=== PATIENT | female | born 1995 | race Caucasian/White ===

== ENCOUNTER → 2023-10-13 09:22 | Outpatient (REF) | payer BC, SELFPAY | LOC: PNTC 09:22 | PROVIDERS: ATTENDING PHYSICIAN Obstetrics & Gynecology | DX: Z36.0 Encounter for antenatal screening for chromosomal anomalies (principal); Z36.82 Encounter for antenatal screening for nuchal translucency; Q79.60 Ehlers-Danlos syndrome, unspecified | CPT/HCPCS: 76801; 76813 ==

== ENCOUNTER → 2024-01-08 11:39 | Outpatient (REF) | payer BC, SELFPAY | LOC: HWRAD 11:39 | PROVIDERS: ATTENDING PHYSICIAN Nurse Practitioner | DX: R22.1 Localized swelling, mass and lump, neck (principal) | CPT/HCPCS: 76536 ==

== ENCOUNTER → 2024-01-26 09:29 | Outpatient (REF) | payer BC, SELFPAY | LOC: RCS 09:29 | PROVIDERS: ATTENDING PHYSICIAN Nurse Practitioner; REFERRING PHYSICIAN Internal Medicine Interventional Cardiology | DX: R00.2 Palpitations (principal) | CPT/HCPCS: 93225; 93226 ==

== ENCOUNTER 2024-02-09 09:53 | Emergency (ER) | payer BC, SELFPAY ==
[2024-02-09 10:01] VITALS: BP 126/69
[2024-02-09 10:10] VITALS: BP 111/71
--- NOTE | 2024-02-09 10:17 | ED.GENMED ---
History of Present Illness
General
Chief Complaint: Heart Rate Problem
Source: patient
Time Seen by Provider: 02/09/24 10:05
History of Present Illness
History of Present Illness:
28-year-old female presents to the emergency room complaining of rapid heartbeat. Patient has a history of palpitations. She has been having episodes which are typically short-lived since she was 13 years old. She has worn Holter monitors which
have failed to capture the dysrhythmia. Today her symptoms were lasting for about 40 minutes prompting her visit to the emergency room. She states that they have never been able to capture the rhythm at all. She tried vagal maneuvers at home.
She is apprehensive to take medication as she is 30 weeks .
Phy Exam
Physical Exam
Physical Exam:
General: Awake, Alert, Oriented X3. No acute distress.
Vitals: Tachycardic
Head: Atraumatic
Eyes: Pupils equal, EOMI
Throat: Airway intact, no exudates
Neck: Trachea midline
Lungs: Clear and equal b/l
Heart: Tachycardic regular rate, no murmurs
Abd: Soft, Nontender, No pulsatile mass
Neuro: Nonfocal
Skin: Warm, dry, no rash
Extremities: pulses equal b/l, no edema
Course
Orders/Labs/Results
Orders:
Orders
02/09/24 09:54
ECG [Electrocardiogram (*1)] Urgent
Reason for Study: Palpitations
EKG- Treatment ONCE
Vital Signs
Initial and Last Documented VS:
Initial Vital Signs
Temp Pulse Resp BP Pulse Ox
98.3 F 201 16 126/69 98
02/09/24 10:01 02/09/24 10:01 02/09/24 10:01 02/09/24 10:01 02/09/24 10:01
Last Documented Vital Signs
Temp Pulse Resp BP Pulse Ox
98.3 F 104 19 99/73 98
02/09/24 10:01 02/09/24 11:03 02/09/24 11:03 02/09/24 11:03 02/09/24 11:00
MDM/Problems Addressed
Differential Diagnosis Includes:
PSVT, WPW, a flutter
MDM/Problems Addressed:
Patient presents with rapid heart rate. EKG seems consistent with PSVT. Patient is 30 weeks and apprehensive to use medication. She has had multiple episodes like this which have been shorter lived. The heart rhythm has always
spontaneously reverted to normal sinus rhythm. Patient has tried vagal maneuvers at home without improvement. She tried vagal maneuvers here initially without improvement. I asked the patient to try different vagal maneuver... Revert maneuver.
This was successful on the second attempt. Patient now in normal sinus rhythm. She has an appoint with cardiology in the coming days. Will not prescribe any medication until she can see cardiology. Patient stable for discharge home.
*Pulse Oximetry
Patient hypoxic: no
*EKG
Interpreted by ED Provider?: Yes
Interpretation: abnormal
Heart Rate: 191
Rate: tachycardiac
Rhythm: SVT
[place]: normal axis
Interval: normal interval
QRS Pattern: normal QRS
Ischemia: non-specific ST changes
*Hha Interpretation
Rate: tachycardiac
Heart Rate: 191
Rhythm: SVT
*Critical Care Note
Total Time (30-74mins, 75-104mins- exclusive of procedures): Not Applicable
ED Attending Note
-
Portions of this chart may have been created with voice recognition software.� Occasional wrong word or��sound alike� substitutions may have occurred due to the inherent limitations of voice recognition software.
Discharge Plan
Departure
Patient Disposition: Home (Routine Discharge)
Date of Disposition: 02/09/24
Time of Disposition: 11:25
Patient with high blood pressure during this ER visit?: No
Condition: Good
Discharge Problem:
Paroxysmal supraventricular tachycardia
Instructions: Supraventricular tachycardia (SVT)
Prescriptions:
No Action
Control
1 tab PO DAILY
Referrals:
Marita Chang CRNP [Family Provider] -
Activity Restrictions/Additional Instructions:
Follow up with Dr. Frazier as scheduled.
Interventions
Interventions:
*Risk Screen - Suicide Last Done: 02/09/24 10:01
*General Assessment Last Done: 02/09/24 10:01
*Neglect/Abuse Screening Last Done: 02/09/24 10:01
ED- Fall Risk Assessment Last Done: 02/09/24 11:33
*ED COVID-19 Vaccine History Last Done: 02/09/24 10:13
*Nursing Disposition Last Done: 02/09/24 11:33
ED- Cardiac Assessment Last Done: 02/09/24 10:11
ED- Pulmonary Assessment Last Done: 02/09/24 10:11
Discharge Date and Time
Discharge Date/Time: 02/09/24 11:34
Print Language: SERBIAN
[2024-02-09 11:03] VITALS: BP 99/73
== END 2024-02-09 11:34 | disposition home or self-care (01) ==
LOC: EMR 09:53
PROVIDERS: EMERGENCY PHYSICIAN Emergency Medicine; FAMILY PHYSICIAN Nurse Practitioner
DX: O99.413 Diseases of the circulatory system complicating pregnancy, third trimester (principal); I47.19 Other supraventricular tachycardia; Z3A.30 30 weeks gestation of pregnancy
CPT/HCPCS: 99283; 93005

== ENCOUNTER → 2024-03-21 15:46 | Outpatient (REF) | payer BC, SELFPAY | LOC: RCS 15:46 | PROVIDERS: ATTENDING PHYSICIAN Nuclear Medicine Nuclear Cardiology; FAMILY PHYSICIAN Nurse Practitioner | DX: I47.10 Supraventricular tachycardia, unspecified (principal) | CPT/HCPCS: 93306 ==